=== PATIENT | female | born 1960 | race Caucasian/White ===

== ENCOUNTER → 2020-01-12 | Outpatient (CLI) | payer BC, OTHER | LOC: SJCVCIMAG 08:41 | DX: I10 Essential (primary) hypertension (principal); E78.5 Hyperlipidemia, unspecified; F17.200 Nicotine dependence, unspecified, uncomplicated; Z90.710 Acquired absence of both cervix and uterus ==

== ENCOUNTER → 2020-08-02 | Outpatient (CLI) | payer BC, OTHER | LOC: LAB 14:00 | PROVIDERS: ATTEND Neuromusculoskeletal Medicine & OMM | DX: Z20.828 Contact with and (suspected) exposure to other viral communicable diseases (principal) ==